=== PATIENT | female | born 2000 | race Caucasian/White ===

== ENCOUNTER 2024-06-13 18:05 | Emergency (ER) | payer BC ==
[~2024-06-13] VITALS: Ht 172.7 cm; Wt 79.7 kg
[2024-06-13] MEDS ORDERED: Ketorolac 30 MG/ML VIAL IM ONE (19:00)
[2024-06-13 19:03] LABS: BASO # 0.03 K/mm3 (0.02-0.10); EOS # 0.05 K/mm3 (0.04-0.40); EOS % 0.7 % (1.0-5.0); HEMATOCRIT 43.2 % (37.0-47.0); HEMOGLOBIN 14.3 g/dL (12.5-16.0); LYMPH# 2.36 K/mm3 (1.50-4.00); MEAN CELL VOLUME 92 fl (78-100); MEAN CORPUSCULAR HEMOGLOBIN 31 pg (27-31); MEAN CORPUSCULAR HGB CONC 33 g/dL (33-37); MEAN PLATELET VOLUME 10.3 fl (7.4-10.4); MONO # 0.45 K/mm3 (0.20-0.80); NEU # 4.45 K/mm3 (1.40-6.50); PLATELET COUNT 224 K/mm3 (130-400); RED BLOOD COUNT 4.69 M/mm3 (4.10-5.30); RED CELL DISTRIBUTION WIDTH 11.9 % (11.5-14.5); WHITE BLOOD COUNT 7.4 K/mm3 (4.8-10.8)
[2024-06-13 19:10] LABS: ALBUMIN 4.5 g/dL (3.5-5.0)
[2024-06-13 19:11] LABS: CALCIUM 10.2 mg/dL (8.3-10.5)
[2024-06-13 19:13] LABS: TOTAL PROTEIN 7.3 g/dL (6.4-8.3)
[2024-06-13 19:15] LABS: TOTAL BILIRUBIN 0.3 mg/dL (0.2-1.2)
[2024-06-13 20:00] VITALS: BP 119/87
== END 2024-06-13 20:00 | disposition home or self-care (01) ==
LOC: ED 18:05
PROVIDERS: Family Medicine
DX: R20.0 Anesthesia of skin (principal); M54.2 Cervicalgia
CPT/HCPCS: J1885